=== PATIENT | male | born 1935 | race Caucasian/White ===

== ENCOUNTER → 2017-03-07 | Outpatient (REF) | payer MEDICARE ==
[2017-03-07 13:52] LABS: PERCENT SATURATION 29.1 % (19.7-37.4)
== END ==
LOC: M LAB REF 13:25
PROVIDERS: ATTEND Internal Medicine Nephrology
DX: E78.2 Mixed hyperlipidemia (principal); D50.9 Iron deficiency anemia, unspecified

== ENCOUNTER → 2017-04-26 | Outpatient (REF) | payer MEDICARE | LOC: M LAB REF 17:27 | PROVIDERS: ATTEND Surgery | DX: C44.329 Squamous cell carcinoma of skin of other parts of face (principal); L57.8 Other skin changes due to chronic exposure to nonionizing radiation ==

== ENCOUNTER → 2017-05-23 | Outpatient (REF) | payer MEDICARE ==
[2017-05-23 14:49] LABS: HEPATITIS B SURFACE ANTIBODY NEGATIVE (POSITIVE)
== END ==
LOC: M LAB REF 13:56
PROVIDERS: ATTEND Internal Medicine Nephrology
DX: N18.6 End stage renal disease (principal)

== ENCOUNTER → 2017-08-05 | Outpatient (REF) | payer MEDICARE | LOC: M LAB REF 16:58 | PROVIDERS: ATTEND Internal Medicine Nephrology | DX: E78.2 Mixed hyperlipidemia (principal) ==

== ENCOUNTER → 2017-08-08 | Outpatient (CLI) | payer MEDICARE ==
--- NOTE | 2017-08-08 09:40 | REP ---
PA and lateral chest: Comparisons 01/04/2008. Lung haney are clear. Cardiac size is normal. There is chronic mild elevation of the right hemidiaphragm and surgical clips in the abdominal left upper quadrant. These findings are unchanged. The brittny, mediastinum, and bony thorax are unremarkable. Impression: There are no acute cardiopulmonary findings. There is chronic elevation of the right hemidiaphragm and surgical clips in the abdominal right upper quadrant, unchanged. Signed by Joaquim Lynn MD 08/08/2017 09:32 A
== END ==
LOC: M WUC 08:44
PROVIDERS: ATTEND Internal Medicine Nephrology
DX: R06.02 Shortness of breath (principal)

== ENCOUNTER → 2017-11-21 | Outpatient (REF) | payer MEDICARE ==
[2017-11-21 14:26] LABS: CHOLESTEROL LEVEL 182 MG/DL (<200); CHOLESTEROL RISK RATIO 4.789 (<5); HDL CHOLESTEROL 38 MG/DL (>40); LDL CHOLESTEROL 103.6 MG/DL (<100); NON-HDL-C 144 MG/DL; TRIGLYCERIDES LEVEL 202 MG/DL (<150)
== END ==
LOC: M LAB REF 13:48
DX: E78.2 Mixed hyperlipidemia (principal)
CPT/HCPCS: 80061

== ENCOUNTER → 2017-12-02 | Outpatient (CLI) | payer MEDICARE | LOC: M EKG 15:13 | DX: I10 Essential (primary) hypertension (principal); E78.00 Pure hypercholesterolemia, unspecified; E11.9 Type 2 diabetes mellitus without complications; N28.9 Disorder of kidney and ureter, unspecified; D68.9 Coagulation defect, unspecified | CPT/HCPCS: 93005 ==

== ENCOUNTER → 2017-12-02 | Outpatient (REF) | payer MEDICARE ==
[2017-12-02 14:13] LABS: INR 0.92; PROTHROMBIN TIME 12.4 SECONDS (12.4-14.5)
[2017-12-02 14:14] LABS: PARTIAL THROMBOPLASTIN TIME 28.4 SECONDS (26.8-37.9)
[2017-12-02 15:03] LABS: HEPATITIS B SURFACE ANTIBODY NEGATIVE (POSITIVE)
[2017-12-02 15:13] LABS: HEPATITIS B SURFACE ANTIGEN NEGATIVE (NEGATIVE)
[2017-12-02 15:41] LABS: HEPATITIS C VIRUS ABY INDEX 0.2 INDEX (<0.8)
[2017-12-02 15:42] LABS: HEPATITIS B CORE ANTIBODY IGM NEGATIVE (NEGATIVE)
== END ==
LOC: M LAB REF 13:14
DX: D68.9 Coagulation defect, unspecified (principal); N18.6 End stage renal disease

== ENCOUNTER 2017-12-08 06:01 | Day surgery (SDC) | payer MEDICARE ==
[2017-12-08] MEDS: D5W/0.2% SODIUM CHLORIDE 1,000 ML IV (06:15)
[2017-12-08 06:38] LABS: POTASSIUM SERUM 5.2 MEQ/L (3.5-5.1)
[2017-12-08 07:00] LABS: BEDSIDE GLUCOSE 109 MG/DL (83-110)
[2017-12-08] MEDS ORDERED: ROCURONIUM BROMIDE 50 MG/5 ML VIAL As Ordered (07:17)
[2017-12-08] MEDS ORDERED: fentaNYL 100 MCG/2 ML INJECTION (J3010) As Ordered (07:17)
[2017-12-08] MEDS ORDERED: MIDAZOLAM INJ 2 MG/2 ML VIAL (J2250) As Ordered ×2 (07:17→08:05)
[2017-12-08] MEDS ORDERED: PROPOFOL 200 MG/20 ML VIAL As Ordered (07:17)
[2017-12-08] MEDS ORDERED: LIDOCAINE PRES-FREE 2% 10ML AMP As Ordered (08:06)
[2017-12-08] MEDS: HEPARIN SOD (PORCINE) 5000 UNITS/ML VIAL As Ordered (08:20)
[2017-12-08] MEDS ORDERED: ONDANSETRON 4MG/2ML VIAL (J2405) As Ordered (08:27)
[2017-12-08] MEDS: LIDOCAINE 1% SDV INJ 30 ML VIAL As Ordered (08:33)
[2017-12-08] MEDS ORDERED: BACITRACIN OINT 30GM TOP (09:45)
[2017-12-08] MEDS ORDERED: NORCO, ANEXSIA 5/325MG TABLET (HYDROcodone/ACETAMINOPHEN) PO (09:45)
[2017-12-08] MEDS ORDERED: ACETAMINOPHEN TAB 650MG DOSE (2X325MG) PO (09:45)
== END 2017-12-08 10:15 | disposition home or self-care (01) ==
LOC: M SDC 06:01
DX: N18.4 Chronic kidney disease, stage 4 (severe) (principal); E11.9 Type 2 diabetes mellitus without complications; I10 Essential (primary) hypertension; E78.00 Pure hypercholesterolemia, unspecified; Z79.899 Other long term (current) drug therapy
CPT/HCPCS: 49421

== ENCOUNTER → 2018-01-25 | Outpatient (CLI) | payer MEDICARE | LOC: M SMT 13:22 | DX: R93.8 Abnormal findings on diagnostic imaging of other specified body structures (principal); Z99.2 Dependence on renal dialysis | CPT/HCPCS: 74018 ==

== ENCOUNTER → 2018-03-04 | Outpatient (CLI) | payer MEDICARE | LOC: M RAD 11:10 | DX: T85.611A Breakdown (mechanical) of intraperitoneal dialysis catheter, initial encounter (principal); I70.0 Atherosclerosis of aorta; K57.90 Diverticulosis of intestine, part unspecified, without perforation or abscess without bleeding; Y83.1 Surgical operation with implant of artificial internal device as the cause of abnormal reaction of the patient, or of later complication, without mention of misadventure at the time of the procedure; N40.0 Benign prostatic hyperplasia without lower urinary tract symptoms | CPT/HCPCS: 74176 ==

== ENCOUNTER 2018-04-13 05:56 | Day surgery (SDC) | payer MEDICARE ==
[2018-04-13 06:28] LABS: POTASSIUM SERUM 4.9 MEQ/L (3.5-5.1)
[2018-04-13] MEDS ORDERED: NS 1,000 ML IV (06:30)
[2018-04-13] MEDS ORDERED: LR 1,000 ML IV ×3 (06:30→09:45)
[2018-04-13] MEDS ORDERED: fentaNYL 100 MCG/2 ML INJECTION (J3010) As Ordered (06:42)
[2018-04-13] MEDS ORDERED: ROCURONIUM BROMIDE 50 MG/5 ML VIAL As Ordered (06:42)
[2018-04-13] MEDS ORDERED: PROPOFOL 200 MG/20 ML VIAL As Ordered (06:42)
[2018-04-13] MEDS ORDERED: LIDOCAINE 2% INJ 100 MG/5 ML SDV (FOR ANES.) As Ordered (06:42)
[2018-04-13] MEDS: HEPARIN SOD (PORCINE) 5000 UNITS/ML VIAL As Ordered ×3 (07:32→08:43)
[2018-04-13] MEDS ORDERED: ONDANSETRON 4MG/2ML VIAL (J2405) As Ordered (07:43)
[2018-04-13] MEDS ORDERED: GLYCOPYRROLATE INJ 0.2 MG/ML 2 ML VIAL As Ordered (07:45)
[2018-04-13] MEDS ORDERED: NEOSTIGMINE 10 MG/10 ML VIAL (J2710) As Ordered (07:45)
[2018-04-13] MEDS: BUPIVACAINE HCL 0.25% 30 ML VIAL As Ordered (08:00)
[2018-04-13] MEDS ORDERED: LABETALOL HCL 100 MG/20 ML VIAL As Ordered (08:55)
[2018-04-13] MEDS ORDERED: ACETAMINOPHEN TAB 650MG DOSE (2X325MG) PO (09:45)
[2018-04-13] MEDS ORDERED: ONDANSETRON 4MG/2ML VIAL (J2405) IV (09:45)
[2018-04-13] MEDS ORDERED: fentaNYL 100 MCG/2 ML INJECTION (J3010) IV (09:45)
[2018-04-13] MEDS ORDERED: NORCO, ANEXSIA 5/325MG TABLET (HYDROcodone/ACETAMINOPHEN) PO (09:45)
[2018-04-13 10:13] LABS: BEDSIDE GLUCOSE 106 MG/DL (83-110)
== END 2018-04-13 11:59 | disposition home or self-care (01) ==
LOC: M SDC 05:56
DX: T85.691A Other mechanical complication of intraperitoneal dialysis catheter, initial encounter (principal); N18.6 End stage renal disease; E78.00 Pure hypercholesterolemia, unspecified; E11.22 Type 2 diabetes mellitus with diabetic chronic kidney disease; I15.0 Renovascular hypertension; K21.9 Gastro-esophageal reflux disease without esophagitis; Z79.899 Other long term (current) drug therapy; Z79.82 Long term (current) use of aspirin; Z87.891 Personal history of nicotine dependence; Z86.19 Personal history of other infectious and parasitic diseases; X58.XXXA Exposure to other specified factors, initial encounter; Y93.89 Activity, other specified; Y92.89 Other specified places as the place of occurrence of the external cause; Y99.8 Other external cause status
CPT/HCPCS: 49325

== ENCOUNTER 2018-04-14 09:16 | Emergency (ER) | payer OTHER, MEDICARE ==
[2018-04-14 11:03] LABS: BASO # 0.1 10^3/uL (0.0-0.2); BASO % 0.6 % (0.0-1.0); EOS # 0.1 10^3/uL (0.0-0.50); EOS % 0.8 % (0.0-3.0); HEMATOCRIT 34.3 % (42.0-52.0); HEMOGLOBIN 11.4 g/dl (13.5-17.5); IMMATURE GRANULOCYTE % 0.4 % (0-3.0); LYMPH # 1.2 10^3/uL (1.5-4.5); LYMPH % 10.8 % (24.0-44.0); MEAN CORPUSCULAR HEMOGLOBIN 32.2 pg (27.0-33.0); MEAN CORPUSCULAR HGB CONC 33.2 g/dl (32.0-36.5); MEAN CORPUSCULAR VOLUME 96.9 fl (80.0-96.0); MONO # 1.2 10^3/uL (0.0-0.8); MONO % 11.7 % (0.0-5.0); NEUTROPHILS # 8.1 10^3/uL (1.8-7.7); NEUTROPHILS % 75.7 % (36.0-66.0); PLATELET COUNT, AUTOMATED 274 10^3/uL (150-450); RED BLOOD COUNT 3.54 10^6/uL (4.30-6.10); WHITE BLOOD COUNT 10.6 10^3/uL (4.0-10.0)
[2018-04-14 11:27] LABS: ALBUMIN 2.9 GM/DL (3.2-5.2); ALBUMIN/GLOBULIN RATIO 0.58 (1.00-1.93); ALKALINE PHOSPHATASE 55 U/L (45-117); ALT/SGPT 11 U/L (12-78); AMYLASE 50 U/L (25-115); ANION GAP 9 MEQ/L (8-16); AST/SGOT 19 U/L (7-37); BILIRUBIN,DIRECT 0.1 MG/DL (0.0-0.2); BILIRUBIN,TOTAL 0.4 MG/DL (0.2-1.0); BLOOD UREA NITROGEN 49 MG/DL (7-18); CALCIUM LEVEL 8.9 MG/DL (8.8-10.2); CARBON DIOXIDE LEVEL 26 MEQ/L (21-32); CHLORIDE LEVEL 103 MEQ/L (98-107); CREATININE FOR GFR 7.45 MG/DL (0.70-1.30); GLOMERULAR FILTRATION RATE 7.5 (>35); GLUCOSE, FASTING 156 MG/DL (70-100); LIPASE 85 U/L (73-393); SODIUM LEVEL 138 MEQ/L (136-145); TOTAL PROTEIN 7.9 GM/DL (6.4-8.2)
[2018-04-14 11:42] LABS: KETONE, URINE AUTO RFX NEGATIVE (NEGATIVE); LEUKOCYTE ESTERASE UR AUTO RFX NEGATIVE (NEGATIVE); NITRITE, URINE AUTO RFX NEGATIVE (NEGATIVE); RBC, URINE AUTO RFX 63 /HPF (0-3); SPECIFIC GRAVITY UR AUTO RFX 1.008 (1.002-1.035); SQUAM EPITHELIAL CELL UR AURFX 0 /HPF (0-6); WBC, URINE AUTO RFX 3 /HPF (0-3)
== END 2018-04-14 12:22 | disposition home or self-care (01) ==
LOC: M ED 09:16
DX: R33.9 Retention of urine, unspecified (principal); Z98.890 Other specified postprocedural states
CPT/HCPCS: 82150

== ENCOUNTER → 2018-04-27 | Outpatient (REF) | payer MEDICARE, OTHER | LOC: M LAB REF 16:52 | DX: N39.0 Urinary tract infection, site not specified (principal) | CPT/HCPCS: 87186 ==

== ENCOUNTER → 2018-05-31 | Outpatient (REF) | payer MEDICARE | LOC: M LAB REF 10:43 | DX: C44.509 Unspecified malignant neoplasm of skin of other part of trunk (principal) | CPT/HCPCS: 88305 ==

== ENCOUNTER → 2018-07-03 | Outpatient (REF) | payer MEDICARE | LOC: M LAB REF 10:00 | DX: C44.519 Basal cell carcinoma of skin of other part of trunk (principal) | CPT/HCPCS: 88305 ==

== ENCOUNTER → 2018-10-17 | Outpatient (REF) | payer MEDICARE ==
[~2018-10-17] MED LIST: AMLO5TAB4 PO; ASPI1TAB PO; CRES10TA32 PO; FURO40TA2 PO; GLIP5TAB8 PO; METO25TA4 PO; PROC1INJ5 IJ; ROCA0.25 PO; VITA50005 PO
== END ==
LOC: M SFHCPLAZ 17:28
PROVIDERS: ATTEND Dermatology
DX: C44.41 Basal cell carcinoma of skin of scalp and neck (principal); C44.212 Basal cell carcinoma of skin of right ear and external auricular canal; C44.319 Basal cell carcinoma of skin of other parts of face

== ENCOUNTER → 2018-10-31 | Outpatient (REF) | payer MEDICARE | LOC: M SFHCPLAZ 12:07 | DX: C44.311 Basal cell carcinoma of skin of nose (principal); D04.5 Carcinoma in situ of skin of trunk; C44.519 Basal cell carcinoma of skin of other part of trunk; L57.0 Actinic keratosis; E85.89 Other amyloidosis | CPT/HCPCS: 88305 ==

== ENCOUNTER → 2018-11-21 | Outpatient (REF) | payer MEDICARE ==
[~2018-11-21] MED LIST changes: -AMLO5TAB4 PO; +AMLO5TAB6 PO
== END ==
LOC: M SFHCPLAZ 19:54
PROVIDERS: ATTEND Dermatology
DX: C44.41 Basal cell carcinoma of skin of scalp and neck (principal)

== ENCOUNTER → 2018-12-05 | Outpatient (REF) | payer MEDICARE ==
[~2018-12-05] MED LIST changes: -ASPI1TAB PO; +ASPI81TA26 PO; +CRES10TA PO; -CRES10TA32 PO
== END ==
LOC: M SFHCPLAZ 09:42
PROVIDERS: ATTEND Dermatology
DX: C44.41 Basal cell carcinoma of skin of scalp and neck (principal); C44.519 Basal cell carcinoma of skin of other part of trunk; C44.619 Basal cell carcinoma of skin of left upper limb, including shoulder

== ENCOUNTER → 2018-12-08 | Outpatient (REF) | payer MEDICARE ==
[~2018-12-08] MED LIST changes: +ASPI1TAB PO; -ASPI81TA26 PO; -CRES10TA PO; +CRES10TA32 PO
== END ==
LOC: M LAB REF 10:53
PROVIDERS: ATTEND Otolaryngology
DX: C44.211 Basal cell carcinoma of skin of unspecified ear and external auricular canal (principal); D49.2 Neoplasm of unspecified behavior of bone, soft tissue, and skin

== ENCOUNTER → 2019-07-02 | Outpatient (REF) | payer MEDICARE ==
[~2019-07-02] MED LIST changes: -ASPI1TAB PO; +ASPI81TA26 PO; +CRES10TA PO; -CRES10TA32 PO
== END ==
LOC: M SFHCPLAZ 19:49
PROVIDERS: ATTEND Dermatology
DX: C44.42 Squamous cell carcinoma of skin of scalp and neck (principal); C44.629 Squamous cell carcinoma of skin of left upper limb, including shoulder; C44.619 Basal cell carcinoma of skin of left upper limb, including shoulder

== ENCOUNTER → 2019-08-21 | Outpatient (REF) | payer MEDICARE | LOC: M SFHCPLAZ 10:01 | PROVIDERS: ATTEND Dermatology | DX: C44.42 Squamous cell carcinoma of skin of scalp and neck (principal) ==

== ENCOUNTER → 2019-09-11 | Outpatient (REF) | payer MEDICARE | LOC: M SFHCPLAZ 10:33 | PROVIDERS: ATTEND Dermatology | DX: C44.629 Squamous cell carcinoma of skin of left upper limb, including shoulder (principal) ==

== ENCOUNTER 2020-01-23 07:30 | Emergency (ER) | payer MEDICARE, OTHER ==
[~2020-01-23] VITALS: Ht 172.7 cm; Wt 75.8 kg
[2020-01-23] MEDS ORDERED: LOSA50TA88 PO (07:52)
[2020-01-23] MEDS ORDERED: FEBU40TA4 PO (07:52)
[2020-01-23] MEDS ORDERED: AURY1TAB PO (07:52)
[2020-01-23] MEDS ORDERED: OMEP40CA97 PO (07:52)
[2020-01-23] MEDS ORDERED: DIAL800T3 PO (07:52)
[2020-01-23 08:15] LABS: VENOUS BASE EXCESS 1.4 (-2.0-2.0); VENOUS HCO3 26.1 MEQ/L (23.0-27.0); VENOUS O2 SATURATION 56.1 % (60.0-80.0); VENOUS PARTIAL PRESSURE CO2 41.9 mmHg (38.0-50.0); VENOUS PH 7.413 UNITS (7.330-7.430); VENOUS STANDARD HCO3 24.9 MEQ/L; VENOUS TOTAL CO2 27.4 MEQ/L (24.0-28.0)
[2020-01-23] MEDS ORDERED: ADACEL/BOOSTRIX VACCINE (DIPHTH/PERTUSS/ACELL/TETANUS)0.5ML SYR (90715) IM ONE (08:15)
[2020-01-23 08:23] LABS: BASO % 0.3 % (0.0-1.0); EOS % 0.1 % (0.0-3.0); HEMATOCRIT 29.2 % (42.0-52.0); HEMOGLOBIN 9.9 g/dl (13.5-17.5); LYMPH # 1.4 10^3/uL (1.5-5.0); MEAN CORPUSCULAR HEMOGLOBIN 34.6 pg (27.0-33.0); MEAN CORPUSCULAR HGB CONC 33.9 g/dl (32.0-36.5); MEAN CORPUSCULAR VOLUME 102.1 fl (80.0-96.0); MONO % 15.6 % (0.0-5.0); NEUTROPHILS # 11.2 10^3/uL (1.5-8.5); NEUTROPHILS % 74.4 % (36.0-66.0); PLATELET COUNT, AUTOMATED 206 10^3/uL (150-450); RED BLOOD COUNT 2.86 10^6/uL (4.30-6.10)
--- NOTE | 2020-01-23 08:34 | REP ---
Portable chest, 08:12 a.m., single AP view with the patient sitting: Comparisons are 08/08/2017 and 01/01/2020. The patient is rotated. This in combination with AP positioning artifactually accentuates cardiac size. There is a minor zone of atelectasis/scarring inferolaterally on the left. The lung haney otherwise clear. The brittny, mediastinum, skeletal structures are unremarkable. Taking into account positioning. Impression: Minor atelectasis/scarring inferolaterally in the left lung. Patient rotated. Portable positioning. Electronically Signed by Joaquim Lynn MD 01/23/2020 08:26 A
--- NOTE | 2020-01-23 08:35 | REP ---
CT study of the cervical spine without contrast: History: Injury in a fall. Technique: Helical scanning is acquired and overlapping 2 mm high resolution axial images were generated and reviewed at bone and soft tissue window settings. Coronal and sagittal multiplanar re-formations images are generated. CT findings: There is no evidence of cervical spine element fracture. No skull base fracture is seen. Cervical vertebral body heights are preserved. Alignment is normal. Facet joints are normally aligned bilaterally at each cervical level on multiplanar re-formations images. There is no evidence of intraspinal or paraspinal hematoma. No extra vertebral abnormality is seen. There are degenerative disc disease and osteoarthritic facet disease changes consistent with degenerative spondylosis. Degenerative disc changes are most pronounced at C5-6 and C6-7. Facet hypertrophy is most pronounced on the left in the mid cervical spine. Vascular calcification is noted. Impression: Negative CT study of the cervical spine without contrast. No fracture seen. Electronically Signed by Noe Preciado MD 01/23/2020 08:27 A
[2020-01-23 08:51] LABS: MONO # 2.3 10^3/uL (0.0-0.8)
--- NOTE | 2020-01-23 08:51 | REP ---
CT brain without contrast: History: History of a fall. Syncope. No comparison head CT study. CT findings: Preliminary digital grave cleaner radiographs are unremarkable. Bone window settings demonstrate a mucous retention cyst in the inferior aspect the right maxillary sinus. The visualized paranasal sinuses are otherwise clear. There is heavy vascular calcification involving the distal vertebral and distal carotid arteries. No intraorbital abnormality is seen. No skull fracture is observed. No significant scalp hematoma is appreciated. There is moderate to advanced generalized volume loss. There is no evidence of intracranial hemorrhage. There is a old lacunar infarct in the basal ganglia on the right and a tiny old lacunar infarct is seen in the head of the caudate nucleus on the left. There is another right basal ganglia lacunar infarct medially at the anterior edge of the thalamus. There are small vessel atherosclerotic changes in the periventricular white matter. There is an old area of encephalomalacia involving the right posterior temporal lobe consistent with an old cortical infarction. There is an old cortical infarction in the right posterior inferior cerebellum. No acute cortical infarction is seen. No mass, extra-axial fluid collection, or midline shift is seen. Impression: Advanced atrophy, small vessel changes, vascular calcification. 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 No evidence of hemorrhage, acute infarction, mass or extra-axial fluid collection. Electronically Signed by Noe Preciado MD 01/23/2020 04:45 P
[2020-01-23 08:58] LABS: INFLUENZA A AMPLIFICATION NEGATIVE (NEGATIVE); INFLUENZA B AMPLIFICATION NEGATIVE (NEGATIVE)
[2020-01-23 09:09] LABS: ALBUMIN 2.3 GM/DL (3.2-5.2); BILIRUBIN,DIRECT 0.2 MG/DL (0.0-0.2); BILIRUBIN,TOTAL 0.6 MG/DL (0.2-1.0); CALCIUM LEVEL 8.6 MG/DL (8.8-10.2); CK-MB VALUE MASS 33.4 NG/ML (<3.6); CREATININE FOR GFR 7.57 MG/DL (0.70-1.30); FREE T4 1.22 NG/DL (0.76-1.46); GLOMERULAR FILTRATION RATE 7.4 (>35); MAGNESIUM LEVEL 1.8 MG/DL (1.8-2.4); MB/CK RELATIVE INDEX 8.17 (< OR =4); POTASSIUM SERUM 4.3 MEQ/L (3.5-5.1); THYROID STIMULATING HORMONE 0.778 uIU/ML (0.358-3.740); TOTAL PROTEIN 5.9 GM/DL (6.4-8.2); TROPONIN I 12.3 NG/ML (< 0.10)
[2020-01-23] MEDS ORDERED: ASPIRIN 81 MG CHEW TABLET PO ONE (09:30)
[2020-01-23 09:43] LABS: INR 1.1; PROTHROMBIN TIME 13.9 SECONDS (11.8-14.0)
[2020-01-23 09:44] LABS: PARTIAL THROMBOPLASTIN TIME 31.5 SECONDS (25.0-38.4)
[2020-01-23] MEDS ORDERED: HEPARIN DRIP 25,000 UNITS in IV 1 EA IV SCH (10:00)
[2020-01-23 10:15] VITALS: BP 108/63
--- NOTE | 2020-01-23 20:54 | ECGEPIP ---
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
== END 2020-01-23 10:36 | disposition short-term general hospital (02) ==
LOC: EDBD 07:30 → M ED 07:30
DX: I21.4 Non-ST elevation (NSTEMI) myocardial infarction (principal); G31.9 Degenerative disease of nervous system, unspecified; J98.11 Atelectasis; E11.40 Type 2 diabetes mellitus with diabetic neuropathy, unspecified; K21.9 Gastro-esophageal reflux disease without esophagitis; I12.9 Hypertensive chronic kidney disease with stage 1 through stage 4 chronic kidney disease, or unspecified chronic kidney disease; Z79.82 Long term (current) use of aspirin; Z79.899 Other long term (current) drug therapy
CPT/HCPCS: 36415; 70450; 71045; 72125; 80048; 80076; 82550; 82553; 82803; 83605; 83735; 83880; 84439; 84443; 84484; 85025; 85610; 85730; 87040; 87502; 90471; 90715; 93005; 93041; 94760; 96365; 99285; J1644